=== PATIENT | male | born 1940 | race Caucasian/White ===

== ENCOUNTER 2021-05-19 04:53 | Day surgery (SDC) | payer MEDICARE, OTHER, SELFPAY ==
[2021-05-19] VITALS (13 sets, daily range): BP systolic 126–171; BP diastolic 69–98; PULSE 69–85; RESP 16–20; TEMP 36.8–37.5; O2SAT 91–99; BMI 25.7
--- NOTE | 2021-05-19 05:02 | CTR_ITS ---
PROCEDURE INFORMATION: Exam: CT Abdomen And Pelvis With Contrast Exam date and time: 05/19/2021 5:02 AM Age: 81 years old Clinical indication: Abdominal pain; Prior surgery; Additional info: Abd pain TECHNIQUE: Imaging protocol: Computed tomography of the abdomen and pelvis with contrast. Radiation optimization: All CT scans at this facility use at least one of these dose optimization techniques: automated exposure control; mA and/or kV adjustment per patient size (includes targeted exams where dose is matched to clinical indication); or iterative reconstruction. Contrast material: OMNI 300; Contrast volume: 95 ml; Contrast route: INTRAVENOUS (IV); COMPARISON: No relevant prior studies available. RADIATION DOSE METRICS: Total DLP (mGy-cm): 1811.44 FINDINGS: Lungs: Emphysematous change, interstitial disease, and dependent airspace disease. Liver: No focal hepatic mass. Gallbladder and bile ducts: Mildly dilated gallbladder. No biliary ductal dilatation. Pancreas: No pancreatic mass or ductal dilatation. Spleen: Splenic granulomata. Adrenal glands: Unremarkable adrenals. Kidneys and ureters: Nonobstructing 13 mm left and 1 mm right renal calculi. Renal cysts, including a 2.5 cm right upper pole cyst. Stomach and bowel: Small-bowel obstruction in association with right inguinal hernia. Diverticula. Prominent stool. Appendix: No acute appendicitis. Intraperitoneal space: Trace free fluid in the pelvis. Vasculature: Ectasia of the abdominal aorta and prominent vascular calcification. Lymph nodes: Subcentimeter lymph nodes. Urinary bladder: Bladder dilatation. Reproductive: Radiation implants in the prostate. Bones/joints: Osteopenia. Multilevel lumbar laminectomy and pedicle screw fixation. Degenerative change and disc bulging. Soft tissues: Fat containing left inguinal hernia. CT/CT abdomen pelvis w con* [id number] IMPRESSION: 1. Small-bowel obstruction in association with right inguinal hernia. 2. Nonobstructing 13 mm left and 1 mm right renal calculi. 3. Additional findings as described above. The aforementioned findings initiated a critical results communication pathway. An addendum will be issued at the time of clincian notification. COMMENTS: Consistent with the [employer]'s Incidental Findings Committee white paper (J Am Michelle Radiol 2018): Any incidental renal lesion less than 1 cm or classified as too small to characterize, or any incidental cystic renal lesion characterized as simple-appearing, is likely benign. No follow-up imaging is recommended for these lesions per consensus recommendations based on imaging criteria. Radiation Dose CTDIVOL = (mGy): DLP = 1811.44 (mGy-cm)
--- NOTE | 2021-05-19 05:02 | ECG_ITS ---
[facility] Test Date: 2021-05-19 Pat Name: Dani Quesada Department: Room: Gender: Male Reconciliation Coordinator: : 1940 Requested By: Guy Long Order Number: [id number] Magda MD: Yudi Bonner M.D. Measurements Intervals [place] Rate: 82 P: 63 IA: 205 QRS: 75 QRSD: 128 T: 72 QT: 391 QTc: 459 Interpretive Statements SINUS RHYTHM INFERIOR MYOCARDIAL INFARCTION [40+ ms Q WAVE AND/OR ST/T ABNORMALITY IN II/aVF], PROBABLY OLD PROBABLE ANTEROLATERAL MYOCARDIAL INFARCTION [35 ms Q WAVE IN I/aVL/V3-V6], OF INDETERMINATE AGE No previous ECG available for comparison Electronically Signed On 05-19-2021 14:54:42 CDT by Yudi Bonner M.D. [id number]
--- NOTE | 2021-05-19 05:03 | W.ED.ABDPA2 ---
Documented by User: Guy Long MD 05/19/21 05:32 HPI - Abdominal Pain General: Chief Complaint: Abdominal Pain Stated Complaint: abd pain Time Seen by Provider: 05/19/21 04:54 History of Present Illness: HPI narrative: This patient is an 81-year-old male who presents to the emergency department with complaint of pain in his right inguinal area. Patient states he had surgery in this area for hernias twice back in the 80s 90s. Patient states at 630 last night about 11 hours ago started having significant pain in the area and swelling. Patient states the pain is become unbearable. Will do medical evaluation treat as needed MD elicited complaint: abdominal pain Severity: moderate Quality: aching and sharp Radiation: RLQ and suprapubic Migration to: no migration Exacerbating factors: nothing Relieving factors: nothing Associated Symptoms: Denies chills, dysuria, fever(s), nausea and vomiting Review of Systems General: Reports: 10 or more systems reviewed and unremarkable except in HPI and below Const: Denies: fever(s), chills, body aches or fatigue Eyes: Denies: change in vision or blurry vision ENMT: Denies: throat pain, hoarseness or mouth pain Card: Denies: chest pain, palpitations, irregular heart rhythm, edema, swelling of feet/ankles or lightheadedness Resp: Denies: dyspnea, productive cough, non-productive cough, wheezing or pain on inspiration GI: Reports: abdominal pain; Denies: nausea or vomiting : Denies: flank pain, dysuria, urinary frequency, urinary urgency or urinary hesitancy Musc: Denies: neck pain, back pain, extremity pain, extremity swelling, joint pain, joint swelling, joint redness, joint warmth or limited range of motion Skin/Breast: Denies: rash, pruritus, erythema or skin tenderness Neuro: Denies: headache(s), numbness in extremities or weakness in extremities Psych: Denies: anxiety or depression PFSH ED PFSH: Family History Denies family history of Diabetes Dementia Cancer Physical Exam Const: COMMON NORMALS: no acute distress, average body habitus, patient oriented x3, no limitations, healthy appearing, alert and well nourished HENMT: COMMON NORMALS: normocephalic, atraumatic, hearing grossly normal bilaterally, external ears normal, EAC's normal, TM's normal bilaterally, Normal external nose present, Normal nasal mucous membranes and turbinates present, moist oral mucous membranes, oropharynx normal, dentition normal and gingiva normal HEAD & SCALP: normocephalic and atraumatic NOSE: Normal external nose present and Normal nasal mucous membranes and turbinates present EXTERNAL EAR: Yes external ears normal EXTERNAL AUDITORY CANAL: EAC's normal TYMPANIC MEMBRANE: TM's normal bilaterally Neck/C-Spine: COMMON NORMALS: full ROM, no lymphadenopathy, supple, no meningeal signs, no JVD, Thyroid normal and No carotid bruits THYROID: Thyroid normal Chest: COMMONS NORMALS: normal inspection of the chest, normal palpation of entire chest wall, normal inspection of the breasts and normal palpation of the breasts Breast/axilla inspection: Yes normal inspection of the breasts BREAST/AXILLA PALPATION: Yes normal palpation of the breasts Resp: COMMON NORMALS: normal respiratory effort, No retractions, No use of accessory muscles, clear to auscultation bilaterally and percussion normal AUSCULTATION: clear to auscultation bilaterally PERCUSSION: percussion normal Cardio: COMMON NORMALS: no JVD, regular rate, regular rhythm, S1 normal heart sound present, S2 normal heart sound present, No gallops present (Cardio), No clicks present (Cardio), No murmurs present (Cardio), No rub (Cardio) and Peripheral pulses 2+ throughout RATE: regular rate RHYTHM: regular rhythm HEART SOUNDS: S1 normal heart sound present and S2 normal heart sound present PERIPHERAL PULSES: Peripheral pulses 2+ throughout GI: COMMON NORMALS: Normal to inspection, nondistended, normoactive bowel sounds present, Soft to palpation, non-tender, No hepatosplenomegaly present, no masses and no bruits PALPATION: Yes Soft to palpation, Yes Tenderness to palpation present (GI) Details: other (Hernia.), Yes No hepatosplenomegaly present and Yes Hernia present direct inguinal (Unable to reduce.) Direct inguinal hernia laterality: right : COMMON NORMALS: Yes no CVA tenderness BLADDER/KIDNEY EXAM: Yes no CVA tenderness MALE GROIN/PERINEUM EXAM: Yes tenderness Back/Pelvis: COMMON NORMALS: no CVA tenderness, thoracic and lumbar spine normal to inspection, no thoracic nor lumbar tenderness, thoraco-lumbar ROM normal and straight leg raise negative bilaterally Extremity: COMMON NORMALS: normal to inspection, full ROM, capillary refill normal, no joint enlargement, no clubbing, cyanosis or edema, no calf tenderness and no pedal edema Neuro: COMMON NORMALS: patient oriented x3 SENSORIUM/ORIENTATION: Yes alert MENINGEAL SIGNS: Yes no meningeal signs Course Consultations: Consultation #1: Care transferred to Dr. Christiansen for shift change. Time: 05:31 Vital Signs: Vital signs: Vital Signs Temperature 98.2 F 05/19/21 04:54 Pulse Rate 82 05/19/21 07:36 Respiratory Rate 16 05/19/21 07:36 Blood Pressure 148/84 05/19/21 07:36 Pulse Oximetry 95 05/19/21 07:36 MDM - Abdominal Pain Lab Data: Labs: Lab Results 05/19/21 05/19/21 05/19/21 Range/Units 05:20 05:20 05:44 WBC 7.9 (4.0-10.0) 10^3/ uL RBC 5.32 H (4.1-5.3) 10^6/u L Hgb 15.5 (11.7-16.6) g/dL Hct 46.2 (42.0-52.0) % MCV 86.8 (80-94) fL MCH 29.1 (28.0-34.0) pg MCHC 33.5 (30.0-36.0) g/dL RDW 13.6 (12.1-15.1) % Plt Count 215 (130-400) 10^3/c mm MPV 10.6 H (7.4-10.4) fL Neut % (Auto) 91.5 % Lymph % (Auto) 4.3 % [place] % (Auto) 3.7 % Eos % (Auto) 0.1 % Baso % (Auto) 0.1 % Neut # (Auto) 7.18 (1.8-7.7) 10^3/u L Lymph # (Auto) 0.3 L (0.8-4.8) 10^3/u L [place] # (Auto) 0.3 (0.2-0.9) 10^3/u L Eos # (Auto) 0.0 (0.0-0.8) 10^3/u L Baso # (Auto) 0.0 (0.0-0.1) 10^3/u L Nucleated RBC % (a uto) 0 % Nucleated RBCs # 0.0 /100WBC PT 13.20 (12.1-14.9) SECO NDS INR 0.97 (0.8-1.2) APTT 24.9 (23.9-36.7) SECO NDS Sodium 140 (136-145) mmol/L Potassium 3.8 (3.5-5.1) mmol/L Chloride 102 (98-107) mmol/L Carbon Dioxide 26 (22-29) mmol/L Anion Gap 15.8 (5-19) BUN 22 (8-23) mg/dL Creatinine 1.0 (0.7-1.2) mg/dL GFR Calculation Not Reportable Glucose 187 H (65-115) mg/dL Calculated Osmolal ity 298 H (285-295) mOsm/k g Calcium 9.3 (8.5-10.5) mg/dL Total Bilirubin 0.3 (0.15-1.2) mg/dL AST 24 (0-40) U/L ALT 21 (0-41) U/L Alkaline Phosphata se 75 (40-130) IU/L Total Protein 6.7 (6.6-8.7) g/dL Albumin 4.2 (3.5-5.2) g/dL Globulin 2.5 (1.3-4.6) g/dL Urine Color (Yellow) Urine Appearance (CLEAR) Urine pH (5-7) Ur Specific Gravit y (1.005-1.030) Urine Protein (Negative) Urine Glucose (UA) (Normal) Urine Ketones (Negative) Urine Blood (Negative) Urine Nitrate (Negative) Urine Bilirubin (Negative) Prot Sulfosalicyli c Acd (Negative) Urine Urobilinogen (Negative) mg/dL Ur Leukocyte Arabella ase (Negative) Urine RBC (0-2) /hpf Urine WBC (0-5) /hpf Ur Squamous Epith Cells (0-5) /hpf Amorphous Sediment /hpf Urine Bacteria (NONE) /hpf 05/19/21 Range/Units 06:25 WBC (4.0-10.0) 10^3/ uL RBC (4.1-5.3) 10^6/u L Hgb (11.7-16.6) g/dL Hct (42.0-52.0) % MCV (80-94) fL MCH (28.0-34.0) pg MCHC (30.0-36.0) g/dL RDW (12.1-15.1) % Plt Count (130-400) 10^3/c mm MPV (7.4-10.4) fL Neut % (Auto) % Lymph % (Auto) % [place] % (Auto) % Eos % (Auto) % Baso % (Auto) % Neut # (Auto) (1.8-7.7) 10^3/u L Lymph # (Auto) (0.8-4.8) 10^3/u L [place] # (Auto) (0.2-0.9) 10^3/u L Eos # (Auto) (0.0-0.8) 10^3/u L Baso # (Auto) (0.0-0.1) 10^3/u L Nucleated RBC % (a uto) % Nucleated RBCs # /100WBC PT (12.1-14.9) SECO NDS INR (0.8-1.2) APTT (23.9-36.7) SECO NDS Sodium (136-145) mmol/L Potassium (3.5-5.1) mmol/L Chloride (98-107) mmol/L Carbon Dioxide (22-29) mmol/L Anion Gap (5-19) BUN (8-23) mg/dL Creatinine (0.7-1.2) mg/dL GFR Calculation Glucose (65-115) mg/dL Calculated Osmolal ity (285-295) mOsm/k g Calcium (8.5-10.5) mg/dL Total Bilirubin (0.15-1.2) mg/dL AST (0-40) U/L ALT (0-41) U/L Alkaline Phosphata se (40-130) IU/L Total Protein (6.6-8.7) g/dL Albumin (3.5-5.2) g/dL Globulin (1.3-4.6) g/dL Urine Color Yellow (Yellow) Urine Appearance Sl hazy (CLEAR) Urine pH 8 H (5-7) Ur Specific Gravit y 1.010 (1.005-1.030) Urine Protein Neg (Negative) Urine Glucose (UA) Norm (Normal) Urine Ketones 1+ H (Negative) Urine Blood Neg (Negative) Urine Nitrate Negative (Negative) Urine Bilirubin Neg (Negative) Prot Sulfosalicyli c Acd Negative (Negative) Urine Urobilinogen Norm (Negative) mg/dL Ur Leukocyte Arabella ase Negative (Negative) Urine RBC None (0-2) /hpf Urine WBC None (0-5) /hpf Ur Squamous Epith Cells None (0-5) /hpf Amorphous Sediment 2+ /hpf Urine Bacteria 2+ H (NONE) /hpf Discharge Plan Discharge Patient Disposition: Admitted As Inpatient Clinical Impression: Incarcerated right inguinal hernia, Inguinal hernia with bowel obstruction Condition: Stable Coding Level of Care Code ED Rubber T[employer] T[employer] Supervisor for Chg Fwd Exam Comprehensive Documented by User: Joseph Art DO 05/19/21 08:09 HPI - Abdominal Pain General: Chief Complaint: Abdominal Pain Stated Complaint: abd pain Time Seen by Provider: 05/19/21 04:54 PFSH ED PFSH: Family History Denies family history of Diabetes Dementia Cancer Course Vital Signs: Vital signs: Vital Signs Temperature 98.2 F 05/19/21 04:54 Pulse Rate 82 05/19/21 07:36 Respiratory Rate 16 05/19/21 07:36 Blood Pressure 148/84 05/19/21 07:36 Pulse Oximetry 95 05/19/21 07:36 MDM - Abdominal Pain MDM Narrative: Medical decision making narrative: Care assumed a change of shift. CT shows incarcerated right inguinal hernia with bowel obstruction. Discussed with Dr. Rojas he will come and see the patient in the ER. Lab Data: Labs: Lab Results 05/19/21 05/19/21 05/19/21 Range/Units 05:20 05:20 05:44 WBC 7.9 (4.0-10.0) 10^3/ uL RBC 5.32 H (4.1-5.3) 10^6/u L Hgb 15.5 (11.7-16.6) g/dL Hct 46.2 (42.0-52.0) % MCV 86.8 (80-94) fL MCH 29.1 (28.0-34.0) pg MCHC 33.5 (30.0-36.0) g/dL RDW 13.6 (12.1-15.1) % Plt Count 215 (130-400) 10^3/c mm MPV 10.6 H (7.4-10.4) fL Neut % (Auto) 91.5 % Lymph % (Auto) 4.3 % [place] % (Auto) 3.7 % Eos % (Auto) 0.1 % Baso % (Auto) 0.1 % Neut # (Auto) 7.18 (1.8-7.7) 10^3/u L Lymph # (Auto) 0.3 L (0.8-4.8) 10^3/u L [place] # (Auto) 0.3 (0.2-0.9) 10^3/u L Eos # (Auto) 0.0 (0.0-0.8) 10^3/u L Baso # (Auto) 0.0 (0.0-0.1) 10^3/u L Nucleated RBC % (a uto) 0 % Nucleated RBCs # 0.0 /100WBC PT 13.20 (12.1-14.9) SECO NDS INR 0.97 (0.8-1.2) APTT 24.9 (23.9-36.7) SECO NDS Sodium 140 (136-145) mmol/L Potassium 3.8 (3.5-5.1) mmol/L Chloride 102 (98-107) mmol/L Carbon Dioxide 26 (22-29) mmol/L Anion Gap 15.8 (5-19) BUN 22 (8-23) mg/dL Creatinine 1.0 (0.7-1.2) mg/dL GFR Calculation Not Reportable Glucose 187 H (65-115) mg/dL Calculated Osmolal ity 298 H (285-295) mOsm/k g Calcium 9.3 (8.5-10.5) mg/dL Total Bilirubin 0.3 (0.15-1.2) mg/dL AST 24 (0-40) U/L ALT 21 (0-41) U/L Alkaline Phosphata se 75 (40-130) IU/L Total Protein 6.7 (6.6-8.7) g/dL Albumin 4.2 (3.5-5.2) g/dL Globulin 2.5 (1.3-4.6) g/dL Urine Color (Yellow) Urine Appearance (CLEAR) Urine pH (5-7) Ur Specific Gravit y (1.005-1.030) Urine Protein (Negative) Urine Glucose (UA) (Normal) Urine Ketones (Negative) Urine Blood (Negative) Urine Nitrate (Negative) Urine Bilirubin (Negative) Prot Sulfosalicyli c Acd (Negative) Urine Urobilinogen (Negative) mg/dL Ur Leukocyte Arabella ase (Negative) Urine RBC (0-2) /hpf Urine WBC (0-5) /hpf Ur Squamous Epith Cells (0-5) /hpf Amorphous Sediment /hpf Urine Bacteria (NONE) /hpf 05/19/21 Range/Units 06:25 WBC (4.0-10.0) 10^3/ uL RBC (4.1-5.3) 10^6/u L Hgb (11.7-16.6) g/dL Hct (42.0-52.0) % MCV (80-94) fL MCH (28.0-34.0) pg MCHC (30.0-36.0) g/dL RDW (12.1-15.1) % Plt Count (130-400) 10^3/c mm MPV (7.4-10.4) fL Neut % (Auto) % Lymph % (Auto) % [place] % (Auto) % Eos % (Auto) % Baso % (Auto) % Neut # (Auto) (1.8-7.7) 10^3/u L Lymph # (Auto) (0.8-4.8) 10^3/u L [place] # (Auto) (0.2-0.9) 10^3/u L Eos # (Auto) (0.0-0.8) 10^3/u L Baso # (Auto) (0.0-0.1) 10^3/u L Nucleated RBC % (a uto) % Nucleated RBCs # /100WBC PT (12.1-14.9) SECO NDS INR (0.8-1.2) APTT (23.9-36.7) SECO NDS Sodium (136-145) mmol/L Potassium (3.5-5.1) mmol/L Chloride (98-107) mmol/L Carbon Dioxide (22-29) mmol/L Anion Gap (5-19) BUN (8-23) mg/dL Creatinine (0.7-1.2) mg/dL GFR Calculation Glucose (65-115) mg/dL Calculated Osmolal ity (285-295) mOsm/k g Calcium (8.5-10.5) mg/dL Total Bilirubin (0.15-1.2) mg/dL AST (0-40) U/L ALT (0-41) U/L Alkaline Phosphata se (40-130) IU/L Total Protein (6.6-8.7) g/dL Albumin (3.5-5.2) g/dL Globulin (1.3-4.6) g/dL Urine Color Yellow (Yellow) Urine Appearance Sl hazy (CLEAR) Urine pH 8 H (5-7) Ur Specific Gravit y 1.010 (1.005-1.030) Urine Protein Neg (Negative) Urine Glucose (UA) Norm (Normal) Urine Ketones 1+ H (Negative) Urine Blood Neg (Negative) Urine Nitrate Negative (Negative) Urine Bilirubin Neg (Negative) Prot Sulfosalicyli c Acd Negative (Negative) Urine Urobilinogen Norm (Negative) mg/dL Ur Leukocyte Arabella ase Negative (Negative) Urine RBC None (0-2) /hpf Urine WBC None (0-5) /hpf Ur Squamous Epith Cells None (0-5) /hpf Amorphous Sediment 2+ /hpf Urine Bacteria 2+ H (NONE) /hpf Discharge Plan Discharge Patient Disposition: Admitted As Inpatient Clinical Impression: Incarcerated right inguinal hernia, Inguinal hernia with bowel obstruction Condition: Stable Coding Level of Care Code ED [employer] Supervisor for Chg Fwd Exam Comprehensive
[2021-05-19 05:26] LABS: Basophils % 0.1 %; Eosinophils % 0.1 %; Hematocrit 46.2 % (42.0-52.0); Hemoglobin 15.5 g/dL (11.7-16.6); Lymphocytes # 0.3 10^3/uL (0.8-4.8); Lymphocytes % 4.3 %; Mean Corpuscular HGB Conc 33.5 g/dL (30.0-36.0); Mean Corpuscular Hemoglobin 29.1 pg (28.0-34.0); Mean Corpuscular Volume 86.8 fL (80-94); Mean Platelet Volume 10.6 fL (7.4-10.4); Monocytes # 0.3 10^3/uL (0.2-0.9); Monocytes % 3.7 %; Neutrophils # 7.18 10^3/uL (1.8-7.7); Neutrophils % 91.5 %; Nucleated Red Blood Cells % 0 %; Platelet Count 215 10^3/cmm (130-400); Red Blood Count 5.32 10^6/uL (4.1-5.3); Red Cell Distribution Width 13.6 % (12.1-15.1); White Blood Count 7.9 10^3/uL (4.0-10.0)
[2021-05-19] MEDS: sodium chloride 0.9% 500 ML IV (05:30)
[2021-05-19] MEDS: morphine 4 mg/mL SDV 1 mL IVP ×2 (05:30→08:43)
[2021-05-19] MEDS: ondansetron 2 mg/ML SDV 2 mL 4 MG IVP (05:31)
[2021-05-19 05:48] LABS: Alanine Aminotransferase 21 U/L (0-41); Albumin Level 4.2 g/dL (3.5-5.2); Alkaline Phosphatase 75 IU/L (40-130); Anion Gap 15.8 (5-19); Aspartate Amino Transferase 24 U/L (0-40); Blood Urea Nitrogen 22 mg/dL (8-23); Calcium 9.3 mg/dL (8.5-10.5); Carbon Dioxide 26 mmol/L (22-29); Chloride 102 mmol/L (98-107); Globulin 2.5 g/dL (1.3-4.6); Glucose 187 mg/dL (65-115); Osmolality Calculated 298 mOsm/kg (285-295); Potassium 3.8 mmol/L (3.5-5.1); Sodium 140 mmol/L (136-145); Total Bilirubin 0.3 mg/dL (0.15-1.2); Total Protein 6.7 g/dL (6.6-8.7)
[2021-05-19 05:56] LABS: INR 0.97 (0.8-1.2)
[2021-05-19 05:57] LABS: Partial Thromboplastin Time 24.9 SECONDS (23.9-36.7)
[2021-05-19] MEDS: iohexol 300 mg/mL 100 mL Btl IV (06:01)
[2021-05-19 06:55] LABS: Glucose Urine UA Norm (Normal); Protein Urine Neg (Negative); Urine Appearance SL Hazy (CLEAR); Urine Color Yellow (Yellow); pH Urine 8 (5-7)
[2021-05-19 06:56] LABS: Add Urine Culture? No; Add Urine Microscopic? YES; Amorphous Sediment Urine 2+ /hpf; Bacteria Urine 2+ /hpf; Bilirubin Urine Neg (Negative); Blood Urine Neg (Negative); Ketones Urine 1+ (Negative); Leukocyte Esterase Urine Negative (Negative); Nitrate Urine Negative (Negative); Sulfosalicylic Acid Urine Negative (Negative); Urobilinogen Urine Norm (Negative)
--- NOTE | 2021-05-19 08:12 | ECG_ITS ---
[facility] Test Date: 2021-05-19 Pat Name: Dani Quesada Department: Room: Gender: Male Net Ui Developer: : 1940 Requested By: Joseph Ozuna Order Number: [id number] Magda MD: Yudi Bonner M.D. Measurements Intervals [place] Rate: 83 P: 33 MI: 196 QRS: 29 QRSD: 121 T: 72 QT: 376 QTc: 444 Interpretive Statements SINUS RHYTHM INFERIOR MYOCARDIAL INFARCTION [40+ ms Q WAVE AND/OR ST/T ABNORMALITY IN II/aVF], PROBABLY OLD PROBABLE ANTEROLATERAL MYOCARDIAL INFARCTION [35 ms Q WAVE IN I/aVL/V3-V6], OF INDETERMINATE AGE Compared to ECG 05/19/2021 05:35:48 No significant changes Electronically Signed On 05-19-2021 14:54:57 CDT by Yudi Bonner M.D. [id number]
--- NOTE | 2021-05-19 08:35 | PM.HP ---
Providers/Chief Complaint Admitting Physician: General Surgery Nik Rojas MD Primary Care Provider: GAUTAM Chand Chief Complaint: abd pain History of Present Illness Dani Quesada is a 81 year old male who had right inguinal swelling and discomfort last night. He developed nausea and felt like he needed to vomit but has not vomited. He came into the emergency room today and a CAT scan showed an incarcerated right inguinal hernia with resulting small bowel obstruction. Attempts were made to reduce the hernia by the emergency room physician but were unsuccessful. The patient says that he has had a right inguinal hernia repaired twice back in the . He says it has always been a little bulgy on the right side but got a lot worse last night. It sounds like he may have had a recurrence prior to last night. He denies any fevers or chills. Again, he has had nausea but no vomiting. Review of Systems General: Reports: 10 or more systems reviewed and unremarkable except in HPI and below Const: Denies: fever(s) GI: Reports: abdominal pain, nausea and constipation (Eats 4 prunes a day and that does okay ); Denies: vomiting Musc: Reports: back pain (Chronic, status post surgery) Medications/Allergies Home Medications Medication Instructions Recorded Confirmed Last Taken Type diltiazem HCl 240 mg capsule,24 240 mg PO QAM 04/02/20 05/19/21 05/18/21 History hr,extended release gabapentin 300 mg capsule 300 mg PO TID 04/02/20 05/19/21 Unknown History lisinopril 20 mg tablet 20 mg PO BID 04/02/20 05/19/21 05/18/21 History tramadol 50 mg tablet 50 mg PO Q4H PRN MDD 8 tabs 04/02/20 05/19/21 Unknown History Vitamin D3 1 cap PO BID 05/19/21 05/19/21 Unknown History aspirin [Aspir-81] 81 mg PO EVERY OTHER DAY 05/19/21 05/19/21 05/17/21 History coenzyme Q10 [CoQ-10] 100 mg PO DAILY 05/19/21 05/19/21 Unknown History hydrochlorothiazide 12.5 mg PO DAILY 05/19/21 05/19/21 05/18/21 History lecithin 1 tab PO DAILY 05/19/21 05/19/21 Unknown History milk thistle 1 cap PO DAILY 05/19/21 05/19/21 Unknown History multivitamin 1 tab PO BID 05/19/21 05/19/21 Unknown History red yeast rice 600 mg PO BID 05/19/21 05/19/21 Unknown History zinc 1 cap PO DAILY 05/19/21 05/19/21 Unknown History Allergies Allergy/AdvReac Type Severity Reaction Status Date / Time No Known Allergies Allergy Verified 05/19/21 08:28 PFSH Acute PFSH: Medical History (Updated 05/19/21 @ 08:43 by Nik Rojas MD) Atrial fibrillation History of prostate cancer History of skin cancer Face/scalp Hypertension Nephrolithiasis Surgical History (Updated 05/19/21 @ 08:43 by Nik Rojas MD) History of arthroscopy of left knee History of carpal tunnel release Bilateral History of inguinal hernia repair Right x2, left x1 History of lithotripsy History of lumbar discectomy Hardware present S/P excision of lipoma Back Family History Denies family history of Diabetes Dementia Cancer Social History (Updated 05/19/21 @ 08:39 by Nik Rojas MD) Smoking and tobacco status: never smoked Alcohol intake: never Vitals/I&O/Wt Last Vital Signs Temp 98.2 F 05/19/21 04:54 Pulse 82 05/19/21 07:36 Resp 16 05/19/21 07:36 BP 148/84 05/19/21 07:36 Pulse Ox 95 05/19/21 07:36 Weight last 48 hrs Weight 195 lb Physical Exam Narrative: EXAM NARRATIVE: The patient was encountered in his room in the emergency department. He does not appear to be in any acute distress. The pupils are equal. No carotid bruits are heard. The lungs are clear anteriorly. The heart is regular. The abdomen is mildly diffusely tender. Bowel sounds seem hyperactive. The patient has an obvious right inguinal hernia which is very tender to palpation but there are no overlying skin changes. The extremities reveal no edema. Neurologically the patient appears to be grossly intact. Data : 05/19/21 05:20 05/19/21 05:20 CT Abd/Pel: Radiologist's impression: CT abdomen/pelvis 05/19/2021 IMPRESSION: 1. Small-bowel obstruction in association with right inguinal hernia. 2. Nonobstructing 13 mm left and 1 mm right renal calculi. A&P Assessment and plan (1) Inguinal hernia with bowel obstruction: The patient has an obvious incarcerated right inguinal hernia with resulting small bowel obstruction. I discussed the situation with him in some detail. I have recommended an urgent reduction and repair of his hernia. We discussed surgical risks of bleeding, infection, etc. We discussed the pros and cons of mesh use, particularly in hernias that have been obstructed for a while. I made him aware that I probably try to not use mesh if possible given his incarceration. He seems to understand and would like to proceed with a reduction and repair of his hernia today. Status: Acute Attestations Medical Necessity Statement*: I told the patient that if his intestine looks healthy it may be such that he can even be discharged later today. With the hospital being completely full and the Covid pandemic going on, he would like to try to go home if at all possible. He will be kept in outpatient status for now. Coding Level of Care Code Acute Communication Analyst for [employer]oda Christian Diagnoses Inguinal hernia with bowel obstruction K40.30
--- NOTE | 2021-05-19 08:54 | P.ANESASSM_ITS ---
Pre-Anesthetic Assessment Pre-Anesthetic Assessment: Height/Weight: Height 1.85 m Weight 88.451 kg Temp Pulse Resp BP Pulse Ox 98.2 F 82 16 148/84 95 05/19/21 04:54 05/19/21 07:36 05/19/21 07:36 05/19/21 07:36 05/19/21 07:36 Preop Diagnosis: incarcerated R inguinal hernia Proposed Procedure: Operation Date: 05/19/21 09:40 Proposed Procedures p Inguinal Hernia Repair(Right) - Nik Rojas MD Was Beta Karla taken within 24 hours: N/A Was Clonidine taken within 24 hours: N/A Social: Social History: No alcohol and No tobacco Exam: Pre-Anes Outpt Exam: alert, oriented x 3, clear to auscultation bilaterally and regular rate & rhythm Airway: Submandibular: WNL Cervical ROM: WNL MP: 2 History/ROS: No significant history except as noted Pulmonary: Pulmonary: Sleep apnea (Cpap at night) CV/HEM: CV/HEM: Afib and HTN : Comments: renal stones Hepatic: Hepatic: None reported GI: GI: GERD Metabolic: Metabolic: None reported Musc/skel: Musc/skel: None reported Neuropsych: Neuropsych: None reported Anesthetic Plan: ASA status: 2E Anesthesia: Anesthesia Evaluation and General Risk of > 500 ml blood loss (7ml/kg in children): No PFSH Anesthesia PFSH: Medical History (Updated 05/19/21 @ 08:43 by Nik Rojas MD) Atrial fibrillation History of prostate cancer History of skin cancer Face/scalp Hypertension Nephrolithiasis Surgical History (Updated 05/19/21 @ 08:43 by Nik Rojas MD) History of arthroscopy of left knee History of carpal tunnel release Bilateral History of inguinal hernia repair Right x2, left x1 History of lithotripsy History of lumbar discectomy Hardware present S/P excision of lipoma Back Family History Denies family history of Diabetes Dementia Cancer Social History (Updated 05/19/21 @ 08:39 by Nik Rojas MD) Smoking and tobacco status: never smoked Alcohol intake: never Data Anesthesia CBC & Chem 7: 05/19/21 05:20 05/19/21 05:20 Other Labs: Laboratory Results - last 48 hr 05/19/21 05/19/21 05/19/21 05:20 05:20 05:44 WBC 7.9 RBC 5.32 H Hgb 15.5 Hct 46.2 MCV 86.8 MCH 29.1 MCHC 33.5 RDW 13.6 Plt Count 215 MPV 10.6 H Neut % (Auto) 91.5 Lymph % (Auto) 4.3 [place] % (Auto) 3.7 Eos % (Auto) 0.1 Baso % (Auto) 0.1 Neut # (Auto) 7.18 Lymph # (Auto) 0.3 L [place] # (Auto) 0.3 Eos # (Auto) 0.0 Baso # (Auto) 0.0 Nucleated RBC % (auto) 0 Nucleated RBCs # 0.0 PT 13.20 INR 0.97 APTT 24.9 Sodium 140 Potassium 3.8 Chloride 102 Carbon Dioxide 26 Anion Gap 15.8 BUN 22 Creatinine 1.0 GFR Calculation Not Reportable Glucose 187 H Calculated Osmolality 298 H Calcium 9.3 Total Bilirubin 0.3 AST 24 ALT 21 Alkaline Phosphatase 75 Total Protein 6.7 Albumin 4.2 Globulin 2.5 Urine Color Urine Appearance Urine pH Ur Specific [place] Urine Protein Urine Glucose (UA) Urine Ketones Urine Blood Urine Nitrate Urine Bilirubin Prot Sulfosalicylic Acd Urine Urobilinogen Ur Leukocyte Esterase Urine RBC Urine WBC Ur Squamous Epith Cells Amorphous Sediment Urine Bacteria 05/19/21 06:25 WBC RBC Hgb Hct MCV MCH MCHC RDW Plt Count MPV Neut % (Auto) Lymph % (Auto) [place] % (Auto) Eos % (Auto) Baso % (Auto) Neut # (Auto) Lymph # (Auto) [place] # (Auto) Eos # (Auto) Baso # (Auto) Nucleated RBC % (auto) Nucleated RBCs # PT INR APTT Sodium Potassium Chloride Carbon Dioxide Anion Gap BUN Creatinine GFR Calculation Glucose Calculated Osmolality Calcium Total Bilirubin AST ALT Alkaline Phosphatase Total Protein Albumin Globulin Urine Color Yellow Urine Appearance Sl hazy Urine pH 8 H Ur Specific [place] 1.010 Urine Protein Neg Urine Glucose (UA) Norm Urine Ketones 1+ H Urine Blood Neg Urine Nitrate Negative Urine Bilirubin Neg Prot Sulfosalicylic Acd Negative Urine Urobilinogen Norm Ur Leukocyte Esterase Negative Urine RBC None Urine WBC None Ur Squamous Epith Cells None Amorphous Sediment 2+ Urine Bacteria 2+ H Cardiac Studies: No Data to Display
--- NOTE | 2021-05-19 09:48 | PM.OP ---
Operative Report Date of procedure: May 19, 2021 Pre-op Diagnosis: Incarcerated recurrent right inguinal hernia with small bowel obstruction. Post-op diagnosis: same Procedure Done: Reduction and repair of incarcerated recurrent right inguinal hernia. Pathology: none sent Surgeon: Nik Rojas Anesthesia: General Estimated blood loss (mL): 5 Complications: None. Condition: stable Disposition: PACU Procedure: The patient was brought to the operating room and was placed in a supine position on the operating room table. General endotracheal anesthesia was induced. An orogastric tube was then passed by anesthesia. The lower abdomen and inguinal regions were prepped and draped in a sterile fashion. A combination of 1% lidocaine with 1 to 100,000 parts epinephrine and 0.5% bupivacaine was used for local anesthesia throughout the procedure for postoperative anesthesia. The patient had some oblique scars over the inguinal region on the right side. One of these was reopened using a scalpel. Cautery was used to divide the subcutaneous tissue and eventually the hernia sac was identified coming from the area of the external inguinal ring. The external oblique aponeurosis was opened proximally over the inguinal canal and eventually the spermatic cord was identified and was looped with a Gagandeep drain. The hernia sac was freed down to the floor of the inguinal canal where a defect measuring only about 1.5 cm in diameter was found. The defect was enlarged slightly to take some pressure off of the incarcerated tissue at the defect itself. The hernia sac was carefully opened and revealed some slightly dusky omentum in addition a loop of hemorrhagic but clearly viable small bowel. This was all reduced. The hernia sac was ligated near its base at the defect with a suture of 2-0 Vicryl and the excess was excised. Inspection throughout the remainder of the inguinal canal revealed a small amount of preperitoneal fat coming through the internal ring. This was freed down to the ring and was excised. The patient had a slightly enlarged internal inguinal ring in addition to the defect in the floor of the inguinal canal. The internal ring was tightened up with a couple sutures of 0 Prolene which were used to connect the conjoined area medially to the area of the reflecting edge of Poupart's ligament laterally. The defect in the floor of the inguinal canal was closed in the same fashion using interrupted sutures of 0 Prolene. Mesh was avoided given the incarcerated nature of the hernia. No other defects were seen or palpated anywhere. The wound was then extensively irrigated with saline. The tissue/fibrosis that was the external oblique aponeurosis was then closed over the top of the cord using a running suture of 2-0 Vicryl. Another round of irrigation was carried out. The skin was finally approximated using a running subcuticular suture of 3-0 Vicryl. Benzoin and Steri-Strips were placed over the incision and a sterile bandage followed. The patient was taken to the recovery area in stable condition postoperatively.
[2021-05-19] MEDS: fentaNYL 50 mcg/mL INJ 2mL IVP (10:06)
[2021-05-19] MEDS: HYDROcodone-acetaminophen 5-325 mg Tablet 1 TAB PO (11:00)
--- NOTE | 2021-05-19 14:23 | ANE.PACU2 ---
Inpatient post-anesthesia follow up: Airway intact: Yes Vital signs: Temperature 99.5 F Pulse Rate [Monito r] 76 Pulse Rate 72 Respiratory Rate 18 Blood Pressure [Ri ght Arm] 166/89 Blood Pressure 145/76 Pulse Oximetry 94 Oxygen Delivery Me thod Room Air Oxygen Flow Rate 2 Fraction of Inspir ed Oxygen Hydration adequate: Yes Nausea and vomiting: No Pain level: 2 Mental status: Baseline
== END 2021-05-19 11:35 | disposition home or self-care (01) ==
LOC: ER 08:33 → OPS 08:39
PROVIDERS: Emergency Medicine; Emergency Provider Family Medicine; Family Provider Nurse Practitioner Family; PCP Nurse Practitioner Family; Visit Provider Surgery
PROC: (CPT 49521; principal; 2021-05-19 09:30)
DX: K40.31 Unilateral inguinal hernia, with obstruction, without gangrene, recurrent (principal); G47.33 Obstructive sleep apnea (adult) (pediatric); I48.91 Unspecified atrial fibrillation; I10 Essential (primary) hypertension; K21.9 Gastro-esophageal reflux disease without esophagitis; Z85.46 Personal history of malignant neoplasm of prostate
CPT/HCPCS: 49521; 74177; 80053; 81001; 85025; 85610; 85730; 93005; 96374; 96375; 96376; J0330; J1100; J2270; J2370; J2405; J2704; J3010; J3490; J7040; Q9967

== ENCOUNTER 2022-10-27 12:20 | Emergency (ER) | payer MEDICARE, OTHER, SELFPAY ==
[2022-10-27 12:26] VITALS: BP 162/86; PULSE 65; RESP 18; TEMP 37.2; O2SAT 94
--- NOTE | 2022-10-27 13:24 | ED_ITS ---
HPI - General Adult General: Chief complaint: General Medical Stated complaint: Nose bleeding Time Seen by Provider: 10/27/22 12:30 History of Present Illness: 82 yo male patient presents to ER with Nose bleed that has currently stopped. Pt states it bleed for about 45 minutes then when he arrived here it stopped. Pt states he has had this in the past. Pt denies abeing on blood thinner other than baby aspirin. Pt denies any dizziness or headache. Pt denies any other complaints. Associated symptoms: Deny chest pain, confusion, diaphoresis, dyspnea, headache(s), malaise, nausea, rash, palpitations, syncope or vomiting Review of Systems Const: Denies: fever(s), chills, body aches, change in appetite, change in weight, fatigue, malaise or diaphoresis Eyes: Denies: change in vision, blurry vision, blind spots, photophobia, eye discomfort, eye discharge, eye redness, floaters or seeing flashes ENMT: Denies: throat pain, uvular edema, enlarged tonsils, odynophagia, hoarseness, mouth pain, swelling of lips/tongue, oral sores, bleeding gums, dental pain, dry mouth, ear or mastoid pain, ear discharge, change in hearing, tinnitus, disequilibrium, nasal congestion, post nasal drip or sinus pain Card: Denies: chest pain, palpitations, irregular heart rhythm, edema, swellin g of feet/ankles, lightheadedness, syncope, pre-syncope, dyspnea on exertion, orthopnea, leg pain with exertion or acrocyanosis Resp: Denies: dyspnea, productive cough, non-productive cough, wheezing, stridor, pain on inspiration, change in phlegm color, hemoptysis or chest congestion GI: Denies: abdominal pain, nausea, vomiting, hematemesis, dysphagia, diarrhea, constipation, GI cramping, change in bowel habits or rectal pain : Denies: flank pain, dysuria, urinary frequency, urinary urgency, urinary hesitancy or hematuria Musc: Denies: neck pain, back pain, extremity pain, extremity swelling, joint pain, joint swelling, joint redness, joint warmth or deformity Skin/Breast: Denies: rash, pruritus, erythema, sores, new lesions, changes in skin color or dry skin Neuro: Denies: headache(s), numbness in extremities, weakness in extremities, sensory changes, lack of coordination, difficulty walking, frequent falls, dizziness, vertigo, confusion, behavioral changes, Slurred speech present, difficulty communicating thoughts or seizure-like activity Psych: Denies: anxiety, depression, suicidal ideation or homicidal ideation Endo: Denies: polyuria, polydipsia, tired all the time, cold intolerance, excessive sweating, flushing, hot flashes or heat intolerance Vikram/Lymph: Denies: easy bruising, easy bleeding, petechiae, purpura, enlarged lymph nodes or tender lymph nodes All/Imm: Denies: urticaria, throat swelling, tongue swelling, facial swelling, acute wheezing or itchy eyes PFSH ED PFSH: Medical History Atrial fibrillation History of prostate cancer History of skin cancer Face/scalp Hypertension Nephrolithiasis Surgical History History of arthroscopy of left knee History of carpal tunnel release Bilateral History of inguinal hernia repair Right x2, left x1 History of lithotripsy History of lumbar discectomy Hardware present S/P excision of lipoma Back Family History Denies family history of Diabetes Dementia Cancer Social History Smoking and tobacco status: never smoked Alcohol intake: never Physical Exam Const: COMMON NORMALS: no acute distress, average body habitus, patient oriented x3, no limitations, healthy appearing, alert and well nourished HENMT: COMMON NORMALS: normocephalic and Normal external nose present; nasal mucous membranes&turbinates abnorm (anterior nose bleed to left nare - resolved at this time) HEAD & SCALP: normocephalic NOSE: Normal external nose present; nasal mucous membranes&turbinates abnorm (anterior nose bleed to left nare - resolved at this time) THROAT: no uvular edema Eye: COMMON NORMALS: Equal, round and reactive pupils present PUPIL: Yes Equal, round and reactive pupils present Lymph: LYMPHATIC: no lymphadenopathy noted Resp: COMMON NORMALS: normal respiratory effort, No retractions, No use of accessory muscles, clear to auscultation bilaterally and percussion normal AUSCULTATION: clear to auscultation bilaterally PERCUSSION: percussion normal Cardio: COMMON NORMALS: regular rate and regular rhythm RATE: regular rate RHYTHM: regular rhythm Neuro: COMMON NORMALS: patient oriented x3 SENSORIUM/ORIENTATION: Yes alert Course Vital Signs: Vital signs: Vital Signs Temperature 98.9 F 10/27/22 12:26 Pulse Rate 65 10/27/22 12:26 Respiratory Rate 18 10/27/22 12:26 Blood Pressure 162/86 10/27/22 12:26 Pulse Oximetry 94 10/27/22 12:26 MDM - General Adult Medical Decision Making Patient is well appearing non toxic and in no acute distress. 82 yo male patient presents to ER with Nose bleed that has currently stopped. Pt states it bleed for about 45 minutes then when he arrived here it stopped. Pt states he has had this in the past. Pt denies abeing on blood thinner other than baby aspirin. Pt denies any dizziness or headache. Pt denies any other complaints. There is evidence of an anterior nose bleed to left nare but resolved at this time. Pt VSS. Pt denies any other complaints. I reviewed home care and return precautions with patient Differential Diagnosis epistaxis , HTN Discharge Plan Discharge Patient Disposition: Home Clinical Impression: Acute anterior epistaxis Condition: Stable Prescriptions: No Action tramadol 50 mg tablet 50 mg PO Q4H MDD 8 tabs PRN (Reason: Pain) lisinopril 20 mg tablet 20 mg PO BID diltiazem HCl 240 mg capsule,extended release 24 hr 240 mg PO QAM gabapentin 300 mg capsule 300 mg PO TID multivitamin Tablet 1 tab PO BID aspirin 81 mg Tablet,Delayed Release (Dr/Ec) 81 mg PO EVERY OTHER DAY hydrochlorothiazide 12.5 mg capsule 12.5 mg PO DAILY CoQ-10 100 mg Capsule 100 mg PO DAILY red yeast rice 600 mg Tablet 600 mg PO BID Vitamin D3 1 cap PO BID lecithin 1 tab PO DAILY milk thistle 1 cap PO DAILY zinc 1 cap PO DAILY hydrocodone-acetaminophen 5-325 mg tablet 1 - 2 tab PO Q5H PRN (Reason: pain) Qty: 30 0RF Discharge Orders: Discharge ED (Routine); Ordered 10/27/22 Ordered By: Arline Ulrich Referrals: Bryan Amador FNP [Primary Care Provider] - Discharge Diet: Advance as tolerated Discharge Activity: Increase activity as tolerated Patient Instructions: Nosebleed (ED), Opioid Safety, Pain Management Activity Restrictions/Additional Instructions: Please do not stick anything in the nose or blow nose for next 48 hours Please return to ER with any worsening of symptoms May use saline nasal spray after 24-48 hours Coding Level of Care Code ED Office Services Coordinator for [facility] [facility]
== END 2022-10-27 14:22 | disposition home or self-care (01) ==
PROVIDERS: Emergency Provider Registered Nurse; PCP Nurse Practitioner Family
DX: R04.0 Epistaxis (principal); Z79.82 Long term (current) use of aspirin; Z85.46 Personal history of malignant neoplasm of prostate; Z85.828 Personal history of other malignant neoplasm of skin; I10 Essential (primary) hypertension
CPT/HCPCS: 99282

== ENCOUNTER 2022-10-28 08:59 | Emergency (ER) | payer MEDICARE, OTHER, SELFPAY ==
[2022-10-28 09:10] VITALS: BP 127/73; PULSE 75; RESP 16; TEMP 36.7; O2SAT 94
[2022-10-28] MEDS: oxymetazoline 0.05% Nasal Spray 15 mL 2 SPRAY NOSTRIL-L (10:07)
[2022-10-28] MEDS: lidocaine 4% PF 5 mL INJ INJECTION (10:07)
[2022-10-28] MEDS: silver nitrate applicator 1 EACH TOPICAL (10:08)
--- NOTE | 2022-10-28 10:24 | W.ED.GENADLT ---
HPI - General Adult General: Chief complaint: General Medical Stated complaint: Nose Bleeding Time Seen by Provider: 10/28/22 09:16 History of Present Illness: 82 yo male patient presents to ER with c/o nosebleed. Patient was seen yesterday in ER and beeding stopped but started again this am. Pt presents with minimal bleeding. Pt denies any dizziness SOB or any other complaints Associated symptoms: Deny chest pain, confusion, diaphoresis, dyspnea, headache(s), malaise, nausea, rash, palpitations, syncope or vomiting Review of Systems Const: Denies: fever(s), chills, body aches, change in appetite, change in weight, fatigue, malaise or diaphoresis Eyes: Denies: change in vision, blurry vision, blind spots, photophobia, eye discomfort, eye discharge, eye redness, floaters or seeing flashes ENMT: Denies: throat pain, uvular edema, enlarged tonsils, odynophagia, hoarseness, mouth pain, swelling of lips/tongue, oral sores, bleeding gums, dental pain, dry mouth, ear or mastoid pain, ear discharge, change in hearing, tinnitus, disequilibrium, nasal congestion, post nasal drip or sinus pain Card: Denies: chest pain, palpitations, irregular heart rhythm, edema, swelling of feet/ankles, lightheadedness, syncope, pre-syncope, dyspnea on exertion, orthopnea, leg pain with exertion or acrocyanosis Resp: Denies: dyspnea, productive cough, non-productive cough, wheezing, stridor, pain on inspiration, change in phlegm color, hemoptysis or chest congestion GI: Denies: abdominal pain, nausea, vomiting, hematemesis, dysphagia, diarrhea, constipation, GI cramping, change in bowel habits or rectal pain : Denies: flank pain, dysuria, urinary frequency, urinary urgency, urinary hesitancy or hematuria Musc: Denies: neck pain, back pain, extremity pain, extremity swelling, joint pain, joint swelling, joint redness, joint warmth or deformity Skin/Breast: Denies: rash, pruritus, erythema, sores, new lesions, changes in skin color or dry skin Neuro: Denies: headache(s), numbness in extremities, weakness in extremities, sensory changes, lack of coordination, difficulty walking, frequent falls, dizziness, vertigo, confusion, behavioral changes, Slurred speech present, difficulty communicating thoughts or seizure-like activity Psych: Denies: anxiety, depression, suicidal ideation or homicidal ideation Endo: Denies: polyuria, polydipsia, tired all the time, cold intolerance, excessive sweating, flushing, hot flashes or heat intolerance Vikram/Lymph: Denies: easy bruising, easy bleeding, petechiae, purpura, enlarged lymph nodes or tender lymph nodes All/Imm: Denies: urticaria, throat swelling, tongue swelling, facial swelling, acute wheezing or itchy eyes PFSH ED PFSH: Medical History Atrial fibrillation History of prostate cancer History of skin cancer Face/scalp Hypertension Nephrolithiasis Surgical History History of arthroscopy of left knee History of carpal tunnel release Bilateral History of inguinal hernia repair Right x2, left x1 History of lithotripsy History of lumbar discectomy Hardware present S/P excision of lipoma Back Family History Denies family history of Diabetes Dementia Cancer Social History Smoking and tobacco status: never smoked Alcohol intake: never Physical Exam Const: COMMON NORMALS: no acute distress, patient oriented x3, healthy appearing, alert and well nourished GENERAL APPEARANCE: cooperative, comfortable, well kempt and well developed; not ill appearing ORIENTATION/CONSCIOUSNESS: Yes awake, Yes oriented to person, Yes oriented to place and Yes oriented to time HENMT: COMMON NORMALS: normocephalic, atraumatic, hearing grossly normal bilaterally, external ears normal, EAC's normal, TM's normal bilaterally, Normal external nose present and moist oral mucous membranes HEAD & SCALP: normal to inspection, normocephalic and atraumatic FACE & SINUS: normal facial exam, sinuses nontender and face symmetric NOSE: Normal external nose present, Normal nares present, No nasal discharge present and Abnormal external nose present EXTERNAL EAR: Yes external ears normal and Yes mastoids normal EXTERNAL AUDITORY CANAL: EAC's normal TYMPANIC MEMBRANE: TM's normal bilaterally MOUTH: Normal oral and palatal mucosa present, lip normal, tongue normal and Normal salivary glands and ducts present THROAT: no uvular edema Eye: COMMON NORMALS: Equal, round and reactive pupils present, EOMs intact bilaterally, conjunctivae normal, no scleral icterus and no papilledema GENERAL EYE: appearance normal, both eyes and all related structures EYELID: eyelids normal CONJUNCTIVA: Yes conjunctivae normal SCLERA: sclerae normal CORNEA: Yes corneas normal PUPIL: Yes Equal, round and reactive pupils present DIRECT OPHTHALMOSCOPY: Yes no papilledema Neck/C-Spine: COMMON NORMALS: full ROM, no lymphadenopathy, supple, no meningeal signs, no JVD and Thyroid normal GENERAL: Yes normal visual inspection and Yes trachea midline THYROID: Thyroid normal CERVICAL SPINE: Yes cervical ROM normal Lymph: LYMPHATIC: no lymphadenopathy noted and no lymphedema noted Chest: COMMONS NORMALS: normal inspection of the chest and normal palpation of entire chest wall Resp: COMMON NORMALS: normal respiratory effort, No retractions, No use of accessory muscles and clear to auscultation bilaterally EFFORT & INSPECTION: Yes able to speak in complete sentences and Yes symmetric chest movement AUSCULTATION: clear to auscultation bilaterally Cardio: COMMON NORMALS: no JVD, regular rate and regular rhythm RATE: regular rate RHYTHM: regular rhythm GI: COMMON NORMALS: Normal to inspection, nondistended, normoactive bowel sounds present, Soft to palpation, non-tender, No hepatosplenomegaly present, no masses and no bruits INSPECTION: Yes normal to inspection AUSCULTATION: Yes normoactive bowel sounds PALPATION: Yes Soft to palpation and Yes No hepatosplenomegaly present PERCUSSION: normal to percussion RECTAL EXAM: Yes deferred : COMMON NORMALS: Yes no CVA tenderness BLADDER/KIDNEY EXAM: Yes no CVA tenderness Back/Pelvis: COMMON NORMALS: no CVA tenderness, thoracic and lumbar spine normal to inspection, no thoracic nor lumbar tenderness, thoraco-lumbar ROM normal and straight leg raise negative bilaterally THORACIC SPINE/UPPER BACK: Yes normal to inspection LUMBAR SPINE/LOWER BACK: Yes normal to inspection Extremity: COMMON NORMALS: normal to inspection, full ROM and capillary refill normal GENERAL: Yes normal exam except as noted Neuro: COMMON NORMALS: patient oriented x3, CN's II-XII intact bilaterally, moves all extremities, no focal motor deficits, no sensory deficits noted, deep tendon reflexes 2+ bilaterally and gait normal SENSORIUM/ORIENTATION: Yes alert, Yes oriented to person, Yes oriented to place and Yes oriented to time MENINGEAL SIGNS: Yes no meningeal signs CRANIAL NERVES: Yes CN normal except as noted SPEECH: speech normal GAIT: Yes Normal gait present SENSORY EXAM: Yes extremities MOTOR EXAM: 5/5 motor strength present throughout Psych: COMMON NORMALS: mental status grossly normal, Normal thought process present, cooperative, normal affect, speech normal, activity/motor behavior normal, denies hallucinations, denies homicidal ideation and denies suicidal ideation APPEARANCE: Yes grossly normal and Yes well kempt ATTITUDE: Yes calm ACTIVITY/MOTOR BEHAVIOR: Yes appropriate eye contact SPEECH: Yes normal speech THOUGHT PROCESS: Normal thought process present THOUGHT CONTENT: Yes Normal thought content present ATTENTION/CONCENTRATION: Yes attention grossly intact MEMORY/COGNITION: Yes memory grossly intact INSIGHT: Good insight present (Psych) JUDGEMENT: Good judgement present (Psych) Skin: COMMON NORMALS: no rashes or lesions noted, no wounds, turgor normal, no jaundice, no petechiae and no mottling GENERAL SKIN EXAM: no rashes or lesions noted and turgor normal Course Vital Signs: Vital signs: Vital Signs Temperature 98.0 F 10/28/22 09:10 Pulse Rate 75 10/28/22 09:10 Respiratory Rate 16 10/28/22 09:10 Blood Pressure 127/73 10/28/22 09:10 Pulse Oximetry 94 10/28/22 09:10 [facility] - General Adult Medical Decision Making Patient is well appearing non toxic and in no acute distress. Afrin and lidocaine applied to lef nare then silver nitrate stick used to cauterize. This procedure was successful and bleeding has stopped. return precautions and home care reviewed Discharge Plan Discharge Condition: Stable Prescriptions: No Action tramadol 50 mg tablet 50 mg PO Q4H MDD 8 tabs PRN (Reason: Pain) lisinopril 20 mg tablet 20 mg PO BID diltiazem HCl 240 mg capsule,extended release 24 hr 240 mg PO QAM gabapentin 300 mg capsule 300 mg PO TID multivitamin Tablet 1 tab PO BID aspirin 81 mg Tablet,Delayed Release (Dr/Ec) 81 mg PO EVERY OTHER DAY hydrochlorothiazide 12.5 mg capsule 12.5 mg PO DAILY CoQ-10 100 mg Capsule 100 mg PO DAILY red yeast rice 600 mg Tablet 600 mg PO BID Vitamin D3 1 cap PO BID lecithin 1 tab PO DAILY milk thistle 1 cap PO DAILY zinc 1 cap PO DAILY hydrocodone-acetaminophen 5-325 mg tablet 1 - 2 tab PO Q5H PRN (Reason: pain) Qty: 30 0RF Referrals: Bryan Amador FNP [Primary Care Provider] - Coding Level of Care Code ED 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
[2022-10-28 11:27] VITALS: PULSE 72; RESP 16; O2SAT 94
== END 2022-10-28 11:24 | disposition home or self-care (01) ==
PROVIDERS: Emergency Provider Registered Nurse; PCP Nurse Practitioner Family
DX: R04.0 Epistaxis (principal); Z79.82 Long term (current) use of aspirin; Z85.46 Personal history of malignant neoplasm of prostate; I10 Essential (primary) hypertension
CPT/HCPCS: 99283

== ENCOUNTER 2023-07-11 19:34 | Emergency (ER) | payer MEDICARE, OTHER, SELFPAY ==
[2023-07-11 19:46] VITALS: BP 136/85; PULSE 86; RESP 18; TEMP 36.4; O2SAT 91; BMI 25.7
--- NOTE | 2023-07-11 21:39 | ED_ITS ---
HPI - Epistaxis General: Chief complaint: Epistaxis Stated complaint: bloody nose Time Seen by Provider: 07/11/23 21:16 History of Present Illness: Patient is in today for nosebleed. Patient reports that he was sitting at home and his left side nose started to bleed. He reports that it bled approximately 20 to 30 minutes before he decided to come in. He reports that he had a 30- minute drive to the ER. He was holding pressure to his nose in the ER waiting room and the nosebleed stopped. He reports that he has had a similar episode like this several years back where they had to cauterize and then packed his nose. He reports he has not had any issues since that time. He denies any other issues at this present moment. He denies any pain. Associated symptoms: Deny fever(s) Review of Systems Const: Denies: fever(s) or chills ENMT: Reports: epistaxis (Left nare) Card: Denies: chest pain or palpitations Resp: Denies: dyspnea, productive cough or non-productive cough PFSH ED PFSH: Medical History Atrial fibrillation History of prostate cancer History of skin cancer Face/scalp Hypertension Nephrolithiasis Surgical History History of arthroscopy of left knee History of carpal tunnel release Bilateral History of inguinal hernia repair Right x2, left x1 History of lithotripsy History of lumbar discectomy Hardware present S/P excision of lipoma Back Family History Denies family history of Diabetes Dementia Cancer Social History Smoking and tobacco status: never smoked Alcohol intake: never Physical Exam Const: COMMON NORMALS: no acute distress, patient oriented x3 and alert HENMT: OTHER: Patient with no current nosebleed appreciated. There is some dried blood at the opening of the left nostril. No obvious ulceration or active bleeding appreciated on exam. Resp: COMMON NORMALS: normal respiratory effort, No use of accessory muscles and clear to auscultation bilaterally AUSCULTATION: clear to auscultation bilaterally Cardio: COMMON NORMALS: regular rate, regular rhythm, S1 normal heart sound present and S2 normal heart sound present RATE: regular rate RHYTHM: regular rhythm HEART SOUNDS: S1 normal heart sound present and S2 normal heart sound present OTHER: Right anterior chest wall I can auscultate a murmur with bruit appreciated to the right carotid and visible bounding pulse. Patient and states that patient's primary care provider is aware of this and he does follow with cardiology. Neuro: COMMON NORMALS: patient oriented x3 SENSORIUM/ORIENTATION: Yes alert Course Vital Signs: Vital signs: Vital Signs Temperature 97.6 F 07/11/23 19:46 Pulse Rate 68 07/11/23 21:51 Respiratory Rate 18 07/11/23 19:46 Blood Pressure 138/88 07/11/23 21:51 Pulse Oximetry 93 07/11/23 21:51 Oxygen Delivery Me thod Room Air 07/11/23 21:51 MDM - Epistaxis Medical Decision Making Epistaxis Patient epistaxis has resolved at this current time. We discussed conservative treatment at home to prevent rebleed over the next 24 hours. I advised patient not to bend, strain, lift, put anything in the nose, eat hot foods or take hot steamy showers for the next 24 hours. Advised patient to follow-up with ENT tomorrow. I placed an order for case management to facilitate that referral. Advised patient of conservative treatment should no start to rebleed holding direct firm pressure for 5 minutes without peaking. If this is not controlling it hold direct firm pressure for 10 minutes without peaking. Should bleeding still be continuing when pressure is stopped patient should return to the emergency department. Patient and spouse are agreeable with plan of care. No radiology studies performed this visit Discharge Plan Discharge Patient Disposition: Home Clinical Impression: Epistaxis Condition: Stable Prescriptions: No Action tramadol 50 mg tablet 50 mg PO Q4H MDD 8 tabs PRN (Reason: Pain) lisinopril 20 mg tablet 20 mg PO BID diltiazem HCl 240 mg capsule,extended release 24 hr 240 mg PO QAM gabapentin 300 mg capsule 300 mg PO TID multivitamin Tablet 1 tab PO BID aspirin 81 mg Tablet,Delayed Release (Dr/Ec) 81 mg PO EVERY OTHER DAY hydrochlorothiazide 12.5 mg capsule 12.5 mg PO DAILY CoQ-10 100 mg Capsule 100 mg PO DAILY red yeast rice 600 mg Tablet 600 mg PO BID Vitamin D3 1 cap PO BID lecithin 1 tab PO DAILY milk thistle 1 cap PO DAILY zinc 1 cap PO DAILY hydrocodone-acetaminophen 5-325 mg tablet 1 - 2 tab PO Q5H PRN (Reason: pain) Qty: 30 0RF Discharge Orders: Discharge ED (Routine); Ordered 07/11/23 Ordered By: Crista Hutchins Discharge Diet: Usual diet Discharge Activity: Limit activity as instructed Patient Instructions: Epistaxis - Adult Activity Restrictions/Additional Instructions: No bending, lifting, strenuous activity, hot steamy showers, hot foods, anything up the nose for the next 24 hours. Do not blow the nose. Follow-up with ENT tomorrow. Follow-up with primary care provider next week. Should your nose starts to bleed again hold direct firm pressure for 5 minutes without peaking. If nose starts to bleed again after stopping pressure repeat for 10 minutes without peaking. If nose starts to bleed again after stopping pressure resume holding pressure and return to the emergency department immediately. If bleeding is not controlled when you are holding pressure head directly to the ER. Call the ENT office tomorrow morning first thing to schedule an appointment. The number is [phone] Coding Level of Care Code ED Button Cutting Machine Operator for Hoda Christian
[2023-07-11 21:51] VITALS: BP 138/88; PULSE 68; O2SAT 93
--- NOTE | 2023-07-12 08:10 | DCPLANNER ---
assistant accounting manager had message to schedule a follow up appointment for patient with ENT. assistant accounting manager sent patients information to the front office staff at ENT. Patients information will be printed and reviewed. Clinic will call patient with appointment information.
== END 2023-07-11 22:13 | disposition home or self-care (01) ==
PROVIDERS: Emergency Provider Nurse Practitioner Family; PCP Family Medicine
DX: R04.0 Epistaxis (principal); Z79.82 Long term (current) use of aspirin; I10 Essential (primary) hypertension; Z85.46 Personal history of malignant neoplasm of prostate
CPT/HCPCS: 99282

== ENCOUNTER → 2023-07-20 12:29 | Outpatient (BNVA) | payer MEDICARE, OTHER, SELFPAY | PROVIDERS: PCP Family Medicine; Visit Provider Nurse Practitioner Family | DX: Z20.822 Contact with and (suspected) exposure to COVID-19 (principal); U07.1 COVID-19 | CPT/HCPCS: 87426 ==

== ENCOUNTER → 2023-08-06 09:52 | Outpatient (BNVA) | payer MEDICARE, OTHER, SELFPAY | PROVIDERS: PCP Family Medicine; Visit Provider Otolaryngology | DX: R04.0 Epistaxis (principal) | CPT/HCPCS: 99203 ==

== ENCOUNTER 2023-11-14 11:13 | Outpatient (CLI) | payer MEDICARE, OTHER, SELFPAY ==
--- NOTE | 2023-11-14 11:29 | XR_ITS ---
WS: [id number] Exam: XR cervical spine 3V* [id number] Date/Time of Exam: 11/14/2023 11:30 AM Reason For Exam: R CERVICAL RADICULOPATHY No fracture or dislocation. Degenerative narrowing of the C6-7 disc with spondylosis of C5, C6 and C7 . Facet DJD at all levels. Slight degenerative anterolisthesis of C4 on C5. The odontoid is intact. P araspinal soft tissues are unremarkable. Bilateral carotid artery calcifications. IMPRESSION: 1. No acute fracture or significant malalignment. 2. Degenerative changes as detailed above.
== END 2023-11-14 11:14 | disposition home or self-care (01) ==
PROVIDERS: PCP Family Medicine; Visit Provider Family Medicine
DX: M47.812 Spondylosis without myelopathy or radiculopathy, cervical region (principal); M43.12 Spondylolisthesis, cervical region; M54.12 Radiculopathy, cervical region
CPT/HCPCS: 72040

== ENCOUNTER 2024-02-05 21:45 | Emergency (ER) | payer MEDICARE, OTHER, SELFPAY ==
[2024-02-05 21:49] VITALS: BP 161/84; PULSE 76; RESP 18; TEMP 36.8; O2SAT 94
--- NOTE | 2024-02-05 21:56 | W.ED.EPISTAX ---
HPI - Epistaxis General: Chief complaint: Epistaxis Stated complaint: nose bleed 1hr + wont stop Time Seen by Provider: 02/05/24 21:52 History of Present Illness: 83-year-old male patient comes in today with epistaxis bleeding. Patient reports about an hour prior to arrival he started having some nasal bleeding. Patient been holding pressure since then and believes it is almost stopped now. Patient appears nontoxic. Patient appears in no acute distress. Review of Systems General: Reports: 10 or more systems reviewed and unremarkable except in HPI and below ENMT: Reports: epistaxis PFSH ED PFSH: Medical History Atrial fibrillation History of prostate cancer History of skin cancer Face/scalp Hypertension Nephrolithiasis Surgical History History of arthroscopy of left knee History of carpal tunnel release Bilateral History of inguinal hernia repair Right x2, left x1 History of lithotripsy History of lumbar discectomy Hardware present S/P excision of lipoma Back Family History Denies family history of Diabetes Dementia Cancer Social History Smoking and tobacco/nicotine status: never used tobacco/nicotine Alcohol intake: never Physical Exam Const: COMMON NORMALS: alert HENMT: COMMON NORMALS: normocephalic HEAD & SCALP: normocephalic NOSE: Epistaxis present on the left THROAT: posterior oropharynx normal Resp: COMMON NORMALS: normal respiratory effort Cardio: COMMON NORMALS: regular rate RATE: regular rate Extremity: COMMON NORMALS: normal to inspection Neuro: SENSORIUM/ORIENTATION: Yes alert Skin: COMMON NORMALS: turgor normal GENERAL SKIN EXAM: turgor normal Course Vital Signs: Vital signs: Vital Signs Temperature 98.3 F 02/05/24 21:49 Pulse Rate 76 02/05/24 21:49 Respiratory Rate 18 02/05/24 21:49 Blood Pressure 161/84 02/05/24 21:49 Pulse Oximetry 94 02/05/24 21:49 Oxygen Delivery Me thod Room Air 02/05/24 21:49 MDM - Epistaxis Medical Decision Making 83-year-old male patient comes in today for complaints of nasal bleeding. Patient reports symptoms started about an hour ago acute been holding pressure since then. Patient reports that bleeding is better controlled now. On exam we note some fresh blood in the left naris. Posterior pharynx shows no postnasal drainage or blood clot. Patient has had prior history and had seen ENT back in July 2023 and had a normal exam at that time. Patient has stopped taking his aspirin daily. Patient does use Vaseline to the nose as directed by ENT specialist to help prevent bleeding. Patient appears nontoxic. Respirations are even lungs are clear to auscultation. Bleeding was brought under control by clamping and Afrin. Patient was monitored for an hour and a half with no further bleeding. Blood count was normal. Patient was sent home with Afrin to use for the next 3 days to help constrict vessels and prevent further bleeding. Patient was recommended to return to the ER for worsening symptoms or new concerns. Patient reported understanding and agreed to plan. Lab Data 02/05/24 22:15 Laboratory Results WBC 5.01 10^3/uL (3.29-11.43) 02/05/24 22:15 RBC 5.54 10^6/uL (3.85-5.65) 02/05/24 22:15 Hgb 16.50 g/dL (11.27-16.99) 02/05/24 22:15 Hct 48.5 % (37-53) 02/05/24 22:15 MCV 87.5 fl (82-101) 02/05/24 22:15 MCH 29.8 pg (27-33) 02/05/24 22:15 MCHC 34.0 g/dL (30-55) 02/05/24 22:15 RDW 13.4 % (12.1-15.1) 02/05/24 22:15 Plt Count 192 10^3/cmm (157-399) 02/05/24 22:15 MPV 9.7 fL (7.4-10.4) 02/05/24 22:15 Neut % (Auto) 70.0 % 02/05/24 22:15 Lymph % (Auto) 18.8 % 02/05/24 22:15 [place] % (Auto) 7.6 % 02/05/24 22:15 Eos % (Auto) 2.6 % 02/05/24 22:15 Baso % (Auto) 0.6 % 02/05/24 22:15 Neut # (Auto) 3.51 10^3/uL (1.8-7.7) 02/05/24 22:15 Lymph # (Auto) 0.9 10^3/uL (0.8-4.8) 02/05/24 22:15 [place] # (Auto) 0.4 10^3/uL (0.2-0.9) 02/05/24 22:15 Eos # (Auto) 0.1 10^3/uL (0.0-0.8) 02/05/24 22:15 Baso # (Auto) 0.0 10^3/uL (0.0-0.1) 02/05/24 22:15 Nucleated RBC % (auto) 0 % 02/05/24 22:15 Nucleated RBCs # 0.0 /100WBC 02/05/24 22:15 No radiology studies performed this visit Discharge Plan Discharge Patient Disposition: Home Clinical Impression: Epistaxis Condition: Stable Prescriptions: No Action tramadol 50 mg tablet 50 mg PO Q4H MDD 8 tabs PRN (Reason: Pain) lisinopril 20 mg tablet 20 mg PO BID diltiazem HCl 240 mg capsule,extended release 24 hr 240 mg PO QAM gabapentin 300 mg capsule 300 mg PO TID bupropion HCl [Wellbutrin XL] 300 mg tablet extended release 24 hr 300 mg PO QAM multivitamin Tablet 1 tab PO BID aspirin 81 mg Tablet,Delayed Release (Dr/Ec) 81 mg PO EVERY OTHER DAY hydrochlorothiazide 12.5 mg capsule 12.5 mg PO DAILY CoQ-10 100 mg Capsule 100 mg PO DAILY red yeast rice 600 mg Tablet 600 mg PO BID Vitamin D3 1 cap PO BID lecithin 1 tab PO DAILY milk thistle 1 cap PO DAILY zinc 1 cap PO DAILY hydrocodone-acetaminophen 5-325 mg tablet 1 - 2 tab PO Q5H PRN (Reason: pain) Qty: 30 0RF Discharge Orders: Discharge ED (Routine); Ordered 02/05/24 Ordered By: Pineda Ge Referrals: Tracey Vela MD [Primary Care Provider] - Discharge Diet: Usual diet Discharge Activity: Increase activity as tolerated Patient Instructions: Nosebleed (ED) Activity Restrictions/Additional Instructions: Avoid straining. Avoid picking your nose. Avoid blowing your nose hard. Drink plenty of water and fluids. Use Afrin spray 2 sprays each nostril 3 times a day for the next 3 days. Follow-up with primary care as needed. Follow-up with machine learning intern by calling them tomorrow for follow-up appointment. Return to ER for worsening bleeding or new concerns. Coding Level of Care Code ED Security Assistant for Hoda Christian
[2024-02-05] MEDS: oxymetazoline 0.05% Nasal Spray 15 mL 2 SPRAY NOSTRIL-B (22:18)
[2024-02-05 22:20] LABS: Basophils % 0.6 %; Eosinophils # 0.1 10^3/uL (0.0-0.8); Eosinophils % 2.6 %; Hematocrit 48.5 % (37-53); Lymphocytes # 0.9 10^3/uL (0.8-4.8); Lymphocytes % 18.8 %; Mean Corpuscular Hemoglobin 29.8 pg (27-33); Mean Corpuscular Volume 87.5 fl (82-101); Mean Platelet Volume 9.7 fL (7.4-10.4); Monocytes # 0.4 10^3/uL (0.2-0.9); Monocytes % 7.6 %; Neutrophils # 3.51 10^3/uL (1.8-7.7); Nucleated Red Blood Cells % 0 %; Platelet Count 192 10^3/cmm (157-399); Red Blood Count 5.54 10^6/uL (3.85-5.65); Red Cell Distribution Width 13.4 % (12.1-15.1); White Blood Count 5.01 10^3/uL (3.29-11.43)
[2024-02-05 23:56] VITALS: BP 107/64; PULSE 65; RESP 15; O2SAT 92
== END 2024-02-05 23:56 | disposition home or self-care (01) ==
PROVIDERS: Emergency Provider Nurse Practitioner Family; PCP Family Medicine
DX: R04.0 Epistaxis (principal); Z79.82 Long term (current) use of aspirin; I10 Essential (primary) hypertension; Z85.46 Personal history of malignant neoplasm of prostate; Z85.828 Personal history of other malignant neoplasm of skin
CPT/HCPCS: 36415; 85025; 99283

== ENCOUNTER → 2024-03-02 13:09 | Outpatient (BNVA) | payer MEDICARE, OTHER, SELFPAY | PROVIDERS: PCP Family Medicine; Visit Provider Otolaryngology | DX: R04.0 Epistaxis (principal) | CPT/HCPCS: 99213 ==

== ENCOUNTER 2024-06-15 18:21 | Emergency (ER) | payer MEDICARE, OTHER, SELFPAY ==
[2024-06-15 18:26] VITALS: BP 167/84; PULSE 69; TEMP 36.6; O2SAT 94; BMI 25.9
--- NOTE | 2024-06-15 18:52 | CTR_ITS ---
PROCEDURE INFORMATION: Exam: CT Cervical Spine Without Contrast Exam date and time: 06/15/2024 7:11 PM Age: 84 years old Clinical indication: Injury or trauma; Fall; Other: Pain; Additional info: Ground lelvel fall TECHNIQUE: Imaging protocol: Computed tomography of the cervical spine without contrast. Radiation optimization: All CT scans at this facility use at least one of these dose optimization techniques: automated exposure control; mA and/or kV adjustment per patient size (includes targeted exams where dose is matched to clinical indication); or iterative reconstruction. COMPARISON: CR XR cervical spine 3V* [id number] 11/14/2023 11:32 AM RADIATION DOSE METRICS: Total DLP (mGy-cm): 571 FINDINGS: Bones: No acute fractures or traumatic subluxations. 0.4 cm anterolisthesis of C4 on C5. Severe degenerative changes of the cervical spine. 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 Small posterior disc osteophyte complexes cause a [id number] degree of canal stenosis. Severe bilateral facet arthropathy. Multilevel intervertebral disc space narrowing. Marginal osteophytes. Lungs: Lung apices are normal. Soft tissues: Unremarkable. CT/CT cervical spin wo con* [id number] IMPRESSION: 1. No acute fractures or subluxations. Severe cervical spondylosis. 2. 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 Recommend further evaluation with cervical spine MRI.
--- NOTE | 2024-06-15 18:52 | CTR_ITS ---
PROCEDURE INFORMATION: Exam: CT Head Without Contrast Exam date and time: 06/15/2024 7:11 PM Age: 84 years old Clinical indication: Injury or trauma; Fall; Other: Pain; Additional info: Fall-ground level TECHNIQUE: Imaging protocol: Computed tomography of the head without contrast. Radiation optimization: All CT scans at this facility use at least one of these dose optimization techniques: automated exposure control; mA and/or kV adjustment per patient size (includes targeted exams where dose is matched to clinical indication); or iterative reconstruction. COMPARISON: CT cervical spin wo con* [id number] 06/15/2024 7:11 PM RADIATION DOSE METRICS: Total DLP (mGy-cm): 1186 FINDINGS: Brain: No acute intracranial hemorrhage or territorial infarction. No mass effect or midline shift. Microangiopathy with global cerebral volume loss. Slight asymmetric prominence subdural spaces within the anterior right cerebral convexity which may represent a small subdural hygroma. Cerebral ventricles: No ventriculomegaly. Paranasal sinuses: Mucosal thickening of the right maxillary sinus. Mastoid air cells: Visualized mastoid air cells are well aerated. Bones: Unremarkable. No acute fracture. Soft tissues: Unremarkable. CT/CT head wo con* [id number] IMPRESSION: No acute intracranial hemorrhage or territorial infarction. Slight asymmetric prominence subdural spaces within the anterior right cerebral convexity which may represent a small subdural hygroma. Microangiopathy and global cerebral volume loss.
--- NOTE | 2024-06-15 18:57 | ED_ITS ---
HPI - Head Injury 2 General: Chief complaint: Head Injury Stated complaint: Head Injury Time Seen by Provider: 06/15/24 18:52 Source: patient and family Mode of arrival: ambulatory Limitations: no limitations History of Present Illness: Patient made his way to the emergency department accompanied by his spouse from his home. He states he was sitting back in a lawn chair that folded up on him when he fell backwards striking his head against the house. He states that he did not suffer a loss of consciousness. He states he has a mild headache and had a bit of an aura like he was going to have a migraine for a short period of time but did not have a typical migraine headache. He denies any other injury. He denies any prodrome he was a slip and fall injury. He does not take any Antiplatelet agents other than 81 mg of aspirin daily. He does not take any anticoagulants. MD Complaint: head injury Mechanism of Injury: fall Place: home Loss of Consciousness: no Location of injury: occipital Other Injuries: none Context: on aspirin Associated symptoms: Deny nausea, neck pain, syncope, vertigo or vomiting Related Data Home Medications Medication Instructions Recorded Confirmed diltiazem HCl 240 mg capsule,24 240 mg PO QAM 04/02/20 08/06/23 hr,extended release gabapentin 300 mg capsule 300 mg PO TID 04/02/20 08/06/23 lisinopril 20 mg tablet 20 mg PO BID 04/02/20 08/06/23 tramadol 50 mg tablet 50 mg PO Q4H PRN Pain 04/02/20 08/06/23 Vitamin D3 1 cap PO BID 05/19/21 08/06/23 aspirin 81 mg tablet,delayed 81 mg PO EVERY OTHER DAY 05/19/21 08/06/23 release coenzyme Q10 100 mg capsule 100 mg PO DAILY 05/19/21 08/06/23 (CoQ-10) hydrochlorothiazide 12.5 mg capsule 12.5 mg PO DAILY 05/19/21 08/06/23 lecithin 1 tab PO DAILY 05/19/21 08/06/23 milk thistle 1 cap PO DAILY 05/19/21 08/06/23 multivitamin 1 tab PO BID 05/19/21 08/06/23 red yeast rice 600 mg tablet 600 mg PO BID 05/19/21 08/06/23 zinc 1 cap PO DAILY 05/19/21 08/06/23 bupropion HCl 300 mg 24 hr tablet, 300 mg PO QAM 08/06/23 08/06/23 extended release (Wellbutrin XL) Previous Rx's Medication Instructions Recorded hydrocodone 5 mg-acetaminophen 325 1 - 2 tab PO Q5H PRN pain #30 tabs 05/19/21 mg tablet Allergies Allergy/AdvReac Type Severity Reaction Status Date / Time No Known Allergies Allergy Verified 06/15/24 18:31 Review of Systems 2 Const: Denies: fever(s) or chills Eyes: Denies: change in vision Card: Denies: palpitations, syncope or pre-syncope Resp: Denies: dyspnea GI: Denies: abdominal pain, nausea, vomiting or diarrhea Musc: Denies: neck pain, back pain, extremity pain or extremity swelling Skin/Breast: Denies: rash or pruritus Neuro: Denies: numbness in extremities, weakness in extremities, dizziness or vertigo Vikram/Lymph: Denies: easy bruising or easy bleeding PFSH ED 2 PFSH: Medical History Nephrolithiasis History of skin cancer Face/scalp Hypertension History of prostate cancer Atrial fibrillation Surgical History History of lithotripsy History of inguinal hernia repair Right x2, left x1 S/P excision of lipoma Back History of arthroscopy of left knee History of carpal tunnel release Bilateral History of lumbar discectomy Hardware present Family History Denies family history of Diabetes Dementia Cancer Social History Smoking and tobacco/nicotine status: former use of tobacco/nicotine Alcohol intake: never Physical Exam 2 Narrative: EXAM NARRATIVE: He is alert appears to be in no acute distress. Answers questions in a goal- directed fashion. Const: COMMON NORMALS: no acute distress, average body habitus, patient oriented x3 and alert GENERAL APPEARANCE: cooperative and comfortable HENMT: COMMON NORMALS: moist oral mucous membranes and oropharynx normal HEAD IMAGES: 1. Area of contused scalp no step-off no laceration Eye: COMMON NORMALS: Equal, round and reactive pupils present, EOMs intact bilaterally and conjunctivae normal CONJUNCTIVA: Yes conjunctivae normal P UPIL: Yes Equal, round and reactive pupils present Neck/C-Spine: CERVICAL SPINE: Yes cervical ROM normal, No Cervical spine tenderness, No step off deformity, No Paracervical muscle tenderness, No Paracervical spasm and No Trapezius muscle tenderness OTHER: He is able to actively range his neck 45 degrees left and right as well as forward and extend 15 degrees without any discomfort Resp: COMMON NORMALS: normal respiratory effort EFFORT & INSPECTION: Yes able to speak in complete sentences Cardio: COMMON NORMALS: regular rate, regular rhythm and Peripheral pulses 2+ throughout RATE: regular rate RHYTHM: regular rhythm PERIPHERAL PULSES: Peripheral pulses 2+ throughout GI: COMMON NORMALS: Normal to inspection, nondistended, normoactive bowel sounds present Back/Pelvis: COMMON NORMALS: thoracic and lumbar spine normal to inspection, no thoracic nor lumbar tenderness, thoraco-lumbar ROM normal and straight leg raise negative bilaterally Extremity: COMMON NORMALS: normal to inspection, full ROM, capillary refill normal and no calf tenderness Neuro: DIONE COMA SCALE: document GCS findings [place] coma scale eye opening: Spontaneous [place] coma scale verbal response: Orientated [place] coma scale motor response: Obey commands [place] coma scale total score: 15 COMMON NORMALS: patient oriented x3, moves all extremities, no focal motor deficits and no sensory deficits noted SENSORIUM/ORIENTATION: Yes alert Psych: COMMON NORMALS: mental status grossly normal Skin: COMMON NORMALS: no rashes or lesions noted GENERAL SKIN EXAM: no rashes or lesions noted and ecchymosis (Posterior scalp) Course 2 Reevaluation(s): Reevaluation #1: Patient remained stable and suitable for discharge at this time without any new or focal findings. He is alert oriented and no focal examination changes. We discussed his findings of his CT of his head and neck and also disclosed that there was some evidence of central canal narrowing. He states that his doctor has been aware of symptoms and he is scheduled for nerve conduction studies and other studies. Time: 20:03 Vital Signs: Vital signs: Vital Signs Temperature 97.9 F 06/15/24 18:26 Pulse Rate 84 06/15/24 19:03 Respiratory Rate 18 06/15/24 19:03 Blood Pressure 146/85 06/15/24 19:03 Pulse Oximetry 93 06/15/24 19:03 Oxygen Delivery Me thod Room Air 06/15/24 19:03 MDM - Head Injury Medcial Decision Making Patient presented to emergency department as per the HPI. It was a ground-level fall from 6 moving to a sitting position without prodrome of syncope, lightheadedness, etc. There was no associated loss of consciousness with the injury. Clinical examination is reassuring with a GCS of 15. He had area of contused skin and soft tissue at his occiput. There was no other significant clinical findings. Imaging of his head and neck were obtained which were reassuring. There was some incidental findings that were disclosed to the patient as well. He is stable without any evidence of significant traumatic brain injury. We discussed the exceedingly low risk of delayed bleeding etc. with both patient and spouse. Lab Data Radiology Impressions Cervical Spine CT 06/15/24 18:52 IMPRESSION: 1. No acute fractures or subluxations. Severe cervical spondylosis. 2. 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 Recommend further evaluation with cervical spine MRI. Head CT 06/15/24 18:52 IMPRESSION: No acute intracranial hemorrhage or territorial infarction. Slight asymmetric prominence subdural spaces within the anterior right cerebral convexity which may represent a small subdural hygroma. Microangiopathy and global cerebral volume loss. All radiology interpretation(s) finalized by discharge Discharge Plan Discharge Patient Disposition: Home Clinical Impression: Fall from ground level Contusion of scalp Qualifiers: Encounter type: initial encounter Qualified Code(s): S00.03XA - Contusion of scalp, initial encounter Condition: Stable Prescriptions: No Action tramadol 50 mg tablet 50 mg PO Q4H MDD 8 tabs PRN (Reason: Pain) lisinopril 20 mg tablet 20 mg PO BID diltiazem HCl 240 mg capsule,extended release 24 hr 240 mg PO QAM gabapentin 300 mg capsule 300 mg PO TID bupropion HCl [Wellbutrin XL] 300 mg tablet extended release 24 hr 300 mg PO QAM multivitamin Tablet 1 tab PO BID aspirin 81 mg Tablet,Delayed Release (Dr/Ec) 81 mg PO EVERY OTHER DAY hydrochlorothiazide 12.5 mg capsule 12.5 mg PO DAILY CoQ-10 100 mg Capsule 100 mg PO DAILY red yeast rice 600 mg Tablet 600 mg PO BID Vitamin D3 1 cap PO BID lecithin 1 tab PO DAILY milk thistle 1 cap PO DAILY zinc 1 cap PO DAILY hydrocodone-acetaminophen 5-325 mg tablet 1 - 2 tab PO Q5H PRN (Reason: pain) Qty: 30 0RF Discharge Orders: Discharge ED (Routine); Ordered 06/15/24 Ordered By: Juan R Noyola Referrals: Tracey Vela MD [Primary Care Provider] - Discharge Diet: Usual diet Discharge Activity: Increase activity as tolerated Patient Instructions: Opioid Safety, Pain Management Activity Restrictions/Additional Instructions: As we discussed while you are in the emergency department there is no evidence that you have suffered a serious injury as result of your fall. That includes there is no evidence of bleeding inside your skull fracture of your skull etc. Your your neck did not suffer any acute or serious injury. You do have some narrowing of where some of this nerves are nerves in your bones of your neck and that needs to be followed up particular if you develop any increasing numbness, increasing pain or weakness. Coding Level of Care Code ED Inspector Handbag Frames for Hoda Christian
[2024-06-15 19:03] VITALS: BP 146/85; PULSE 84; RESP 18; O2SAT 93
[2024-06-15 20:14] VITALS: BP 128/85; PULSE 89; RESP 16; O2SAT 95
== END 2024-06-15 20:15 | disposition home or self-care (01) ==
PROVIDERS: Emergency Provider Emergency Medicine; PCP Family Medicine
DX: S00.03XA Contusion of scalp, initial encounter (principal); Z79.82 Long term (current) use of aspirin; Z87.891 Personal history of nicotine dependence; I10 Essential (primary) hypertension; Z85.46 Personal history of malignant neoplasm of prostate; W07.XXXA Fall from chair, initial encounter
CPT/HCPCS: 70450; 72125; 99284

== ENCOUNTER → 2024-10-06 15:26 | Outpatient (BNVA) | payer MEDICARE, OTHER, SELFPAY | PROVIDERS: PCP Family Medicine; Visit Provider Family Medicine | DX: I10 Essential (primary) hypertension (principal); I48.91 Unspecified atrial fibrillation; E78.00 Pure hypercholesterolemia, unspecified; G43.909 Migraine, unspecified, not intractable, without status migrainosus; C61 Malignant neoplasm of prostate | CPT/HCPCS: 80053; 80061; 84153; 85025 ==

== ENCOUNTER → 2024-10-30 11:47 | Outpatient (BNVA) | payer MEDICARE, OTHER, SELFPAY | PROVIDERS: PCP Family Medicine; Visit Provider Family Medicine | DX: D48.5 Neoplasm of uncertain behavior of skin (principal) | CPT/HCPCS: 88305 ==

== ENCOUNTER → 2024-12-23 09:19 | Outpatient (BNVA) | payer MEDICARE, OTHER, SELFPAY | PROVIDERS: PCP Family Medicine; Referring Provider Family Medicine; Visit Provider Dermatology | DX: L82.1 Other seborrheic keratosis (principal); L81.4 Other melanin hyperpigmentation; L73.8 Other specified follicular disorders; C44.41 Basal cell carcinoma of skin of scalp and neck; D48.5 Neoplasm of uncertain behavior of skin; L57.0 Actinic keratosis | CPT/HCPCS: 11102; 13121; 17000; 17311; 99203 ==

== ENCOUNTER → 2025-01-20 08:50 | Outpatient (BNVA) | payer MEDICARE, OTHER, SELFPAY | PROVIDERS: PCP Family Medicine; Visit Provider Dermatology | DX: Z48.02 Encounter for removal of sutures (principal); C44.319 Basal cell carcinoma of skin of other parts of face; L57.0 Actinic keratosis | CPT/HCPCS: 12053; 17000; 17311; 99212 ==

== ENCOUNTER → 2025-05-03 11:09 | Outpatient (BNVA) | payer MEDICARE, OTHER, SELFPAY | PROVIDERS: PCP Family Medicine; Visit Provider Dermatology | DX: M67.431 Ganglion, right wrist (principal); D17.1 Benign lipomatous neoplasm of skin and subcutaneous tissue of trunk; D17.21 Benign lipomatous neoplasm of skin and subcutaneous tissue of right arm; L82.1 Other seborrheic keratosis; L81.4 Other melanin hyperpigmentation; L73.8 Other specified follicular disorders; Z08 Encounter for follow-up examination after completed treatment for malignant neoplasm; Z85.828 Personal history of other malignant neoplasm of skin; D48.5 Neoplasm of uncertain behavior of skin; L57.0 Actinic keratosis | CPT/HCPCS: 11102; 17000; 99213 ==

== ENCOUNTER → 2025-05-19 08:25 | Outpatient (BNVA) | payer MEDICARE, OTHER, SELFPAY | PROVIDERS: PCP Family Medicine; Visit Provider Dermatology | DX: C44.91 Basal cell carcinoma of skin, unspecified (principal); D69.2 Other nonthrombocytopenic purpura; Z08 Encounter for follow-up examination after completed treatment for malignant neoplasm; Z85.828 Personal history of other malignant neoplasm of skin; L57.0 Actinic keratosis | CPT/HCPCS: 17000; 99213 ==

== ENCOUNTER → 2025-07-19 08:27 | Outpatient (BNVA) | payer MEDICARE, OTHER, SELFPAY | PROVIDERS: PCP Family Medicine; Visit Provider Dermatology | DX: C44.91 Basal cell carcinoma of skin, unspecified (principal); Z08 Encounter for follow-up examination after completed treatment for malignant neoplasm; Z85.828 Personal history of other malignant neoplasm of skin; L57.0 Actinic keratosis | CPT/HCPCS: 17004; 99213 ==

== ENCOUNTER → 2025-10-18 08:43 | Outpatient (BNVA) | payer MEDICARE, OTHER, SELFPAY | PROVIDERS: PCP Family Medicine; Visit Provider Family Medicine | DX: Z12.5 Encounter for screening for malignant neoplasm of prostate (principal); E55.9 Vitamin D deficiency, unspecified; I10 Essential (primary) hypertension; I48.91 Unspecified atrial fibrillation; E78.00 Pure hypercholesterolemia, unspecified; C61 Malignant neoplasm of prostate; M54.42 Lumbago with sciatica, left side; M54.41 Lumbago with sciatica, right side; G89.29 Other chronic pain; G43.909 Migraine, unspecified, not intractable, without status migrainosus; I77.9 Disorder of arteries and arterioles, unspecified; N28.9 Disorder of kidney and ureter, unspecified; F41.9 Anxiety disorder, unspecified | CPT/HCPCS: 80053; 80061; 82306; 84439; 84443; 85025; G0103 ==

== ENCOUNTER → 2025-10-27 10:41 | Outpatient (BNVA) | payer MEDICARE, OTHER, SELFPAY | PROVIDERS: PCP Family Medicine; Referring Provider Family Medicine; Visit Provider Family Medicine | DX: I10 Essential (primary) hypertension (principal); I48.91 Unspecified atrial fibrillation; N28.9 Disorder of kidney and ureter, unspecified | CPT/HCPCS: 80048 ==